=== PATIENT | female | born 1995 | race Caucasian/White ===

== ENCOUNTER 2025-03-07 13:48 | Outpatient (CLI) | payer OTHER, SELFPAY ==
--- NOTE | 2025-03-07 14:00 | CRLHL7_ITS ---
For Patients: As a result of the Century Cures Act, medical imaging exams and procedure reports are released immediately into your electronic medical record. You may view this report before your referring provider. If you have questions, please contact your health care provider. OB ULTRASOUND FIRST TRIMESTER TRANSVAGINAL INDICATION: Dating and viability. TECHNIQUE: Real time dockery scale imaging of the fetus was performed. Transvaginal imaging performed. LMP: 01/08/2025. BOB by LMP: 10/15/2025. GA: 8 w, 2 d. Previous US: No. CRL: 0.5 cm. 6 w 2 d. BOB: 10/29/2025. FHR: 116BPM. Gestational sac: 0.9 cm. Appears within normal limits. Yolk sac: 1.8 mm. Appears within normal limits. Right ovary: 3.9 x 1.9 x 2.0 cm. CL. Left ovary: Within normal limits. 4.0 x 1.5 x 1.6 cm. IMPRESSION: 1. Single living intrauterine measuring 6 weeks 2 days and sonographic due date 10/29/2025. 2. heart rate lower limits of normal at 116 beats per minute. 3. Mild posterior cul-de-sac free fluid. Nikolai Daniels M.D. Diagnostic Radiologist [email or web address] SP/Dictated by: Nikolai Daniels MD @ 03/07/2025 7:14:00 PM (Electronically Signed)
== END 2025-03-07 13:49 | disposition home or self-care (01) ==
LOC: US 13:48
PROVIDERS: Visit Provider Physician Assistant
DX: Z34.91 Encounter for supervision of normal pregnancy, unspecified, first trimester (principal); Z3A.01 Less than 8 weeks gestation of pregnancy
CPT/HCPCS: 76817

== ENCOUNTER 2025-03-21 16:30 | Outpatient (CLI) | payer OTHER, SELFPAY ==
--- NOTE | 2025-03-21 16:45 | CRLHL7_ITS ---
For Patients: As a result of the Century Cures Act, medical imaging exams and procedure reports are released immediately into your electronic medical record. You may view this report before your referring provider. If you have questions, please contact your health care provider. INDICATION: First trimester dating and viability. TECHNIQUE: Ultrasound OB pelvis transabdominal and transvaginal. Real-time dockery-scale imaging of the pelvis was performed. COMPARISON: Ob ultrasound 03/07/2025. FINDINGS: Intrauterine gestation: Single. heart activity (bpm): No heart tones detected. [place]-rump length: 1.2 cm. Estimated ultrasound age: 7 weeks, 3 days. Yolk sac: Possible tiny yolk sac. Perigestational hemorrhage: None. Ovaries and adnexa: Involuting corpus luteum in the right ovary. Suspicious pelvic fluid collections: None. Other: Trace fluid in the pelvis. IMPRESSION: Perales intrauterine . Cardiac activity is no longer visualized and was seen on the prior exam, diagnostic of early loss. Results were communicated to [place] by Jhonatan on 03/24/2025 at 8:57 a.m. Dictated by Mary Carmen Israel MD @ 03/24/2025 8:58:03 AM (Electronically Signed)
== END 2025-03-21 16:31 | disposition home or self-care (01) ==
LOC: US 16:30
PROVIDERS: Visit Provider Physician Assistant
DX: Z34.91 Encounter for supervision of normal pregnancy, unspecified, first trimester (principal); Z3A.01 Less than 8 weeks gestation of pregnancy
CPT/HCPCS: 76817; 86850; 86900; 86901; J2791

== ENCOUNTER 2025-03-21 17:39 | Outpatient (CLI) | payer OTHER, SELFPAY | END 2025-03-21 17:40 | disposition home or self-care (01) | PROVIDERS: Visit Provider Physician Assistant | DX: O02.1 Missed abortion (principal); O26.891 Other specified pregnancy related conditions, first trimester; Z67.91 Unspecified blood type, Rh negative; Z3A.08 8 weeks gestation of pregnancy | CPT/HCPCS: 86850; 86900; 86901; J2791 ==

== ENCOUNTER 2025-03-22 10:48 | Day surgery (SDC) | payer OTHER, SELFPAY ==
[2025-03-22 11:07] VITALS: BMI 29.2
[2025-03-22 11:09] VITALS: BP 118/75; PULSE 72; RESP 16; TEMP 36.8; O2SAT 98
[2025-03-22] MEDS: LACTATED RINGERS 1000 ML 1,000 ML 100 ML IV (11:15)
[2025-03-22] MEDS: SODIUM CHLORIDE 0.9 % (FLUSH) 10 ML SYRINGE IVF (11:15)
--- NOTE | 2025-03-22 11:31 | SUR.PREOP ---
Dr. Savage gave a verbal order to disc. the rhogam order because the patient recieved it yesterday. I was unable to cancel the order. Lab was unable to cancel the order. Dr. Savage was instructed that she would need to cancel this order. She said she would do that.
[2025-03-22] MEDS: DOXYCYCLINE HYCLATE 200 MG in 0.9 % SODIUM CHLORIDE 250 ml 250 ML 250 MG IVPB (11:35)
[2025-03-22] MEDS: BUPIVACAINE 0.5% 30 ML INJECTION (13:29)
--- NOTE | 2025-03-22 13:34 | P.ANES_ITS ---
Anesthesia Charges Start Date/Time Anesthesia Start Date: 03/22/25 Anesthesia Start Time: 13:12 Stop Date/Time Anesthesia Stop Date: 03/22/25 Anesthesia Stop Time: 14:02 Coding CPT Codes CPT Codes: ANESTH INC/MISSED AB PROC - [id number] ([id number]) P1 - NORMAL HEALTHY PATIENT, QK - PINION SORTER 2-4 CNCRNT ANEMark PROC, QX - SERVICE PARTS COORDINATOR SVTacho W/ MED DIRECTION
--- NOTE | 2025-03-22 13:34 | W.ANESCHARGE ---
Anesthesia Charges Start Date/Time Anesthesia Start Date: 03/22/25 Anesthesia Start Time: 13:12 Stop Date/Time Anesthesia Stop Date: 03/22/25 Anesthesia Stop Time: 14:02 Coding CPT Codes CPT Codes: ANESTH INC/MISSED AB PROC - [id number] ([id number]) P1 - NORMAL HEALTHY PATIENT, QK - DOOR CLOSER 2-4 CNCRNT ANEMark PROC, QX - TRAY SERVER SVTacho W/ MED DIRECTION
[2025-03-22 14:00] VITALS: BP 102/56; PULSE 69; RESP 16; TEMP 36.4; O2SAT 99
--- NOTE | 2025-03-22 14:00 | P.ANES_ITS ---
Anesthesia Charges Start Date/Time Anesthesia Start Date: 03/22/25 Anesthesia Start Time: 13:12 Stop Date/Time Anesthesia Stop Date: 03/22/25 Anesthesia Stop Time: 14:02 Coding CPT Codes CPT Codes: ANESTH HYSTEROSCOPE/GRAPH - [id number] ([id number]) P1 - NORMAL HEALTHY PATIENT, QK - STRUCTURAL BIOLOGIST 2-4 CNCRNT ANES PROC, QX - ATTENDANT HONOR BAR SVC W/ MED DIRECTION
--- NOTE | 2025-03-22 14:00 | SUR.OPER ---
Deficit was 70ml
--- NOTE | 2025-03-22 14:00 | W.ANESCHARGE ---
Anesthesia Charges Start Date/Time Anesthesia Start Date: 03/22/25 Anesthesia Start Time: 13:12 Stop Date/Time Anesthesia Stop Date: 03/22/25 Anesthesia Stop Time: 14:02 Coding CPT Codes CPT Codes: ANESTH HYSTEROSCOPE/GRAPH - [id number] ([id number]) P1 - NORMAL HEALTHY PATIENT, QK - JOB ANALYSIS MANAGER 2-4 CNCRNT ANES PROC, QX - HEEL TRIMMER SVC W/ MED DIRECTION
--- NOTE | 2025-03-22 14:12 | P.PCN_ITS ---
Procedure Note Time Seen by Provider: 14:12 Date Seen: 03/22/25 Date of procedure: 03/22/25 Will [facility] bill your pro fee for this procedure?: Yes Procedure: Preoperative diagnosis: 30 year-old G2 P 1011 with missed A/B Postoperative diagnosis: Same Procedure: Hysteroscopy, Dilation and Curettage using the Truclear incisor Anesthesia: Conscious sedation, paracervical block. Surgeon: Bailey Hernandez MD Student Dean: None Estimated blood loss: 25 mL Specimen: Products of conception to pathology. Findings: Exam under anesthesia: Uterus: Mid position, less than 10 week sized, mobile, with no masses or nodularity palpable. Uterus sounded to 10 cm. No adnexal masses or nodularity palpable. On hysteroscopy: Gestational sac noted on the left fundal region. No abnormalities identified. Tubal ostia appeared normal. Procedure: Emelina was taken to the operating operating room more conscious sedation was found to be adequate. The patient was placed on in the dorsal lithotomy position and an exam under anesthesia was performed with findings stated above. She was then prepped and draped in a normal sterile manner. A bivalve speculum was placed in the vagina. The cervix appears nulliparous. Otherwise no abnorma lities. The paracervical block was placed using 0.5% Marcaine, 10 mL was injected at the 4 and 8 o'clock positions on the cervix. Dilute vasopressin, 20 ampules in 50 mL saline, was injected in frontally around the cervix. 10 mL of the dilute vasopressin was used. The anterior lip of the cervix was grasped with a long Allis clamp. The cervix dilated to Hegar 8. The uterus sounded to 10 cm. The Truclear hysteroscope was advanced into the uterus. A diagnostic hysteroscopy was performed with normal saline as the insufflation medium. Findings are stated above. The Truclear soft tissue incisor was then advanced through the camera. The curettage was performed with the incisor over an approximately 5 minutes. The incisor was then removed. The endometrial cavity appeared normal. Saline deficit at the end of the procedure 70 mL. Total saline used 1520 mL. Nothing was needed for hemostasis. The hysteroscope, Allis clamp and speculum were removed from the vaginal canal. The patient tolerated the procedure well. Sponge, lap and instrument counts were correct x2 at the end of the procedure. The patient was taken to the recovery area in stable condition. Patient received 200 mg IV doxycycline prior to the procedure.
[2025-03-22 14:15] VITALS: BP 114/70; PULSE 66; RESP 16; O2SAT 99
[2025-03-22 14:30] VITALS: BP 112/66; PULSE 68; RESP 16; O2SAT 100
== END 2025-03-22 14:53 | disposition home or self-care (01) ==
PROVIDERS: Visit Provider Obstetrics & Gynecology
PROC: (CPT 59820; principal; 2025-03-22 13:15)
DX: O02.1 Missed abortion (principal)
CPT/HCPCS: 59820; 00952; 01965; 36415; 86850; 86900; 86901; C1782; J0665; J1100; J2250; J2405; J2704; J3010; J3490; J7050; J7120

== ENCOUNTER 2025-07-29 08:28 | Outpatient (CLI) | payer OTHER, SELFPAY | END 2025-07-29 08:29 | disposition home or self-care (01) | LOC: NFLDREF 08:29 | PROVIDERS: Visit Provider Obstetrics & Gynecology | DX: Z34.91 Encounter for supervision of normal pregnancy, unspecified, first trimester (principal) | CPT/HCPCS: 84702 ==

== ENCOUNTER 2025-07-31 12:09 | Outpatient (CLI) | payer OTHER, SELFPAY | END 2025-07-31 12:10 | disposition home or self-care (01) | LOC: LAB 12:10 | PROVIDERS: Visit Provider Obstetrics & Gynecology | DX: Z34.90 Encounter for supervision of normal pregnancy, unspecified, unspecified trimester (principal) | CPT/HCPCS: 36415; 84702 ==

== ENCOUNTER 2025-08-02 13:07 | Outpatient (CLI) | payer OTHER, SELFPAY | END 2025-08-02 13:08 | disposition home or self-care (01) | LOC: NFLDREF 08-07 01:52 | PROVIDERS: Visit Provider Obstetrics & Gynecology | DX: Z34.91 Encounter for supervision of normal pregnancy, unspecified, first trimester (principal) | CPT/HCPCS: 84702 ==

== ENCOUNTER 2025-08-16 13:50 | Outpatient (CLI) | payer OTHER, SELFPAY ==
--- NOTE | 2025-08-16 14:00 | CRLHL7_ITS ---
For Patients: As a result of the Cures Act, medical imaging exams and procedure reports are released immediately into your electronic medical record. You may view this report before your referring provider. If you have questions, please contact your health care provider. OBSTETRICAL ULTRASOUND TRANSVAGINAL CLINICAL INDICATION: Dating and viability. LMP: 06/18/2025 BOB by LMP: 03/25/2026 Gestational age: 8 weeks 3 days PREVIOUS ULTRASOUND: No TECHNIQUE: Real-time dockery-scale imaging of the fetus was performed transvaginal. Transvaginal imaging was performed for better visualization of the endometrium and ovaries. FINDINGS: CRL: 0.5 cm, 6 weeks 1 day; BOB 04/10/2026 heart rate: 115 BPM Gestational sac: 1.8 cm, appears within normal limits Yolk sac: 2.2 mm, appears within normal limits Right ovary: 3.2 x 1.7 x 2.5 cm Left ovary: 3.4 x 2.1 x 2.7 cm IMPRESSION: Single living intrauterine measures 6 weeks 1 day with sonographic due date of 04/10/2026. NIKOLAI LUO M.D. Diagnostic Radiologist [email or web address] Transcribed: 4:[address]/Dictated by: Nikolai Luo MD @ 08/16/2025 3:29:00 PM (Electronically Signed)
== END 2025-08-16 13:51 | disposition home or self-care (01) ==
LOC: US 13:52
PROVIDERS: PCP Physician Assistant; Visit Provider Registered Nurse
DX: Z34.01 Encounter for supervision of normal first pregnancy, first trimester (principal); Z3A.01 Less than 8 weeks gestation of pregnancy
CPT/HCPCS: 76817

== ENCOUNTER 2025-08-31 07:16 | Outpatient (CLI) | payer OTHER, SELFPAY ==
--- NOTE | 2025-08-31 07:15 | CRLHL7_ITS ---
For Patients: As a result of the Cures Act, medical imaging exams and procedure reports are released immediately into your electronic medical record. You may view this report before your referring provider. If you have questions, please contact your health care provider. OB ULTRASOUND FIRST TRIMESTER INDICATION: Follow up viability. TECHNIQUE: Real time dockery scale imaging of the fetus was performed. Transvaginal. LMP: 06/18/2025. BOB by LMP: 03/25/2026. BOB by US: 04/10/2026. GA: 8 w, 2 d. Previous US: Yes 08/16/2025. BOB by US: 04/10/2026. GA: 8 w, 2 d. CRL: 1.9 cm. 8 w 3 d. BOB: 04/09/2026. FHR: 176 BPM. Gestational sac: 3.7 cm. Appears within normal limits. Yolk sac: 3.9 mm. Appears within normal limits. Right ovary: Within normal limits. 3.3 x 2.9 x 3.0 cm. Left ovary: 4.2x 2.2 x 1.8 cm. CL. IMPRESSION: 1. Single living intrauterine measures 8 weeks 3 days with sonographic due date 04/09/2026. 2. Corpus luteal cyst left ovary measures 1.9 x 1.9 x 1.5 cm. 3. Simple left paraovarian cyst measures 1.4 x 1.7 x 1.9 cm. Nikolai Daniels M.D. Diagnostic Radiologist [email or web address] JR/Dictated by: Nikolai Daniels MD @ 08/31/2025 11:26:00 AM (Electronically Signed)
== END 2025-08-31 07:17 | disposition home or self-care (01) ==
LOC: US 07:17
PROVIDERS: PCP Physician Assistant; Visit Provider Physician Assistant
DX: O26.891 Other specified pregnancy related conditions, first trimester (principal); O34.81 Maternal care for other abnormalities of pelvic organs, first trimester; N83.291 Other ovarian cyst, right side; Z3A.08 8 weeks gestation of pregnancy; Z87.59 Personal history of other complications of pregnancy, childbirth and the puerperium
CPT/HCPCS: 76817; 82565; 82570; 83021; 84156; 84450; 84460; 84520; 86703; 86704; 86706; 86762; 86780; 86787; 86803; 86850; 87086; 87340; 87491; 87591

== ENCOUNTER 2025-08-31 07:55 | Outpatient (CLI) | payer OTHER, SELFPAY ==
[2025-08-31 13:53] LABS: Chlamydia DNA Amplified* NOT DETECTED (No Detected); GC DNA Amplified* NOT DETECTED (No Detected)
== END 2025-08-31 07:56 | disposition home or self-care (01) ==
PROVIDERS: PCP Physician Assistant; Visit Provider Registered Nurse
DX: Z34.91 Encounter for supervision of normal pregnancy, unspecified, first trimester (principal); Z87.59 Personal history of other complications of pregnancy, childbirth and the puerperium
CPT/HCPCS: 82565; 82570; 83020; 83021; 84156; 84450; 84460; 84520; 85660; 86703; 86704; 86706; 86762; 86780; 86787; 86803; 86850; 87086; 87340; 87491; 87591